=== PATIENT | female | born 1990 | race Caucasian/White ===

== ENCOUNTER 2016-11-03 11:40 | Emergency (ER) | payer MEDICAID ==
[~2016-11-03] VITALS: Wt 50.5 kg
[~2016-11-03 11:40] MED LIST: CALC-143 PO; FER325 PO; IBUP-1542 PO; PREN1TAB49 PO
[2016-11-03 12:13] LABS: URINE BLOOD (Dip) POC 1+ (NEGATIVE)
--- NOTE | 2016-11-03 12:28 | RADRPT ---
PROCEDURE: US Retroperitoneum. CLINICAL INDICATION: Hematuria. TECHNIQUE: Multiple sonographic images of the retroperitoneum were obtained. Evaluation of the ki dneys and bladder was performed as well as visualization of the aorta and other retroperitoneal stru ctures using a curved array transducer. The images were reviewed on a PACS workstation. COMPARISON: No prior studies are available for comparison. FINDINGS: The kidneys are well visualized. The right kidney measures 10.3 cm in length. The left kidney measu res 9.5 cm in length. There are no focal areas of abnormal echogenicity. There is no mass, calculus, or obstructive uropathy. No perinephric fluid collection is seen. The bladder is not well visual ized and may be decompressed. IMPRESSION: Unremarkable renal ultrasound. RPTAT: HH .Renato Ayala MD, Date Time Electronically viewed and signed by .Renato Ayala MD, MD on 11/03/2016 12:28 .A/
--- NOTE | 2016-11-03 12:29 | ERD ---
ER Documentation Chief Complaint Date/Time DATE: 11/03/16 TIME: 12:26 Chief Complaint LOWER BACK PAIN X1 WEEK, NO INJURY HPI This is a 25-year-old female presenting to the emergency department with bilateral lower back pain 2 weeks. No recent injury or trauma to area. Patient states she has a recent URI with cough and chest pain with coughing. Patient states she has had tactile fevers at home however has not checked her temperature. No nausea or vomiting. No diarrhea or constipation. Patient states today she developed dysuria with some vaginal spotting. Last menstrual period was 1 week ago. ROS All systems reviewed and are negative except as per history of present illness. Medications Home Meds Active Scripts Ibuprofen* (Motrin*) 400 Mg Tab, 400 MG PO Q6, #10 TAB Prov:ROB DÍAZ NP 11/03/16 Acetaminophen* (Tylenol*) 325 Mg Tablet, 1 TAB PO Q6 Y for PAIN AND OR ELEVATED TEMP, #20 TAB Prov:ROB DÍAZ NP 11/03/16 Azithromycin* (Zithromax*) 250 Mg Tablet, 250 MG PO .ZPACK DIRECTED, #6 TAB TAKE 500 MG (2 TABS) THE FIRST DAY THEN 250 MG (1 TAB) DAYS 2-5 Prov:ROB DÍAZ NP 11/03/16 Ibuprofen* (Ibuprofen*) 600 Mg Tab, 600 MG PO Q6, #20 0 Refills Prov:VALERI PARRA MD 01/12/15 Reported Medications Calcium Citrate/Vitamin D (Citracal-Vitamin D 200 MG-250) 1 Each Tablet, 1 EACH PO DAILY, TAB 12/26/14 Ferrous Sulfate* (Ferrous Sulfate*) 325 Mg Tabec, 325 MG PO DAILY, TAB 12/26/14 Vits W-Ca,Fe,Fa(<1MG) () 1 Tab Tablet, 1 TAB PO DAILY 12/29/10 Allergies Allergies: Coded Allergies: No Known Allergies (Verified Allergy, Unknown, 01/10/15) PMhx/Soc Medical and Surgical Hx: pt denies Medical Hx, pt denies Surgical Hx History of Surgery: No Anesthesia Reaction: No Hx Neurological Disorder: No Hx Respiratory Disorders: No Hx Cardiac Disorders: No Hx Psychiatric Problems: No Hx Miscellaneous Medical Probl: No Hx Alcohol Use: No Hx Substance Use: No Hx Tobacco Use: No Smoking Status: Never smoker Physical Exam Vitals Vital Signs Date Time Temp Pulse Resp B/P Pulse Ox O2 Delivery O2 Flow Rate FiO2 11/03/16 11:42 97.2 102 17 118/80 98 Physical Exam Const: No acute distress, alert Head: Atraumatic Eyes: Normal Conjunctiva ENT: Normal External Ears, Nose and Mouth. Neck: Full range of motion..~ No meningismus. Resp: Clear to auscultation bilaterally. No wheezing, rhonchi or crackles. Cardio: Regular rate and rhythm, no murmurs Abd: Soft, non tender, non distended. Normal bowel sounds Skin: No petechiae or rashes Back: No midline or flank tenderness. No CVA tenderness. Ext: No cyanosis, or edema Neur: Awake and alert Psych: Normal Mood and Affect Result Diagram: 11/03/16 1215 11/03/16 1215 Results 24 hrs Laboratory Tests Test 11/03/16 12:15 11/03/16 12:19 White Blood Count 6.910^3/ul Red Blood Count 4.7210^6/ul Hemoglobin 14.0g/dl Hematocrit 40.8% Mean Corpuscular Volume 86.4fl Mean Corpuscular Hemoglobin 29.7pg Mean Corpuscular Hemoglobin Concent 34.3g/dl Red Cell Distribution Width 11.9% Platelet Count 42763^3/UL Mean Platelet Volume 10.4fl Neutrophils % 65.6% Lymphocytes % 23.7% Monocytes % 7.8% Eosinophils % 2.2% Basophils % 0.4% Nucleated Red Blood Cells % 0.0/100WBC Neutrophils # 4.510^3/ul Lymphocytes # 1.610^3/ul Monocytes # 0.510^3/ul Eosinophils # 0.210^3/ul Basophils # 0.010^3/ul Nucleated Red Blood Cells # 0.010^3/ul Sodium Level 144mmol/L Potassium Level 4.7mmol/L Chloride Level 99mmol/L Carbon Dioxide Level 27mmol/L Anion Gap 23 Blood Urea Nitrogen 13mg/dl Creatinine 0.61mg/dl Glucose Level 93mg/dl Calcium Level 9.4mg/dl Total Bilirubin 0.4mg/dl Direct Bilirubin 0.00mg/dl Indirect Bilirubin 0.4mg/dl Aspartate Amino Transf (AST/SGOT) 24IU/L Alanine Aminotransferase (ALT/SGPT) 28IU/L Alkaline Phosphatase 79IU/L Total Protein 8.5g/dl Albumin 4.7g/dl Globulin 3.80g/dl Albumin/Globulin Ratio 1.23 Bedside Urine pH (LAB) 6.5 Bedside Urine Protein (LAB) 1+ Bedside Urine Glucose (UA) Negative Bedside Urine Ketones (LAB) Trace Bedside Urine Blood 1+ Bedside Urine Nitrite (LAB) Negative Bedside Urine Leukocyte Esterase (L Trace Current Medications Medications (Trade) Dose Ordered Sig/Adolph Route PRN Reason Start Time Stop Time Status Last Admin Dose Admin Ibuprofen (Motrin) 400 mg ONCE ONCE PO 11/03/16 12:30 11/03/16 12:31 DC 11/03/16 12:31 Procedures/MDM [place] [id number] Radiology Main Line: [phone] DIAGNOSTIC IMAGING REPORT Patient: BLACK CURTIS : 1990 Age: 25 Sex: F MR #: [id number] DOS: 11/03/16 1200 Ordering MD: ROB DÍAZ NP Location: [facility] Room/Bed: PROCEDURE: US Retroperitoneum. CLINICAL INDICATION: Hematuria. TECHNIQUE: Multiple sonographic images of the retroperitoneum were obtained. Evaluation of the kidneys and bladder was performed as well as visualization of the aorta and other retroperitoneal structures using a curved array transducer. The images were reviewed on a PACS workstation. COMPARISON: No prior studies are available for comparison. FINDINGS: The kidneys are well visualized. The right kidney measures 10.3 cm in length. The left kidney measures 9.5 cm in length. There are no focal areas of abnormal echogenicity. There is no mass, calculus, or obstructive uropathy. No perinephric fluid collection is seen. The bladder is not well visualized and may be decompressed. IMPRESSION: Unremarkable renal ultrasound. [place] [id number] Radiology Main Line: [phone] DIAGNOSTIC IMAGING REPORT Patient: BLACK CURTIS : 1990 Age: 25 Sex: F MR #: [id number] DOS: 11/03/16 1200 Ordering MD: ROB DÍAZ NP Location: [facility] Room/Bed: PROCEDURE: XR Chest. CLINICAL INDICATION: cough, chest pain, tactile fevers TECHNIQUE: Single frontal view of the chest was obtained COMPARISON: None FINDINGS: The heart and mediastinum are within normal limits. There is a patchy infiltrate in the lingula which obscures the left heart border. There is a 4 mm nodule in the mid left lung. Correlation with previous films would be useful. The lungs are otherwise clear. There is no pleural effusion or pneumothorax. The bones and soft tissue show no acute change. IMPRESSION: 1. There is an infiltrate present in the lingula which obscures the left heart border. 2. A 4 mm nodule is seen in the inferior aspect of the left upper lobe. Correlation with previous films would be useful. If no previous films are available for comparison, a low dose CT scan of the chest could be performed. EKG: As interpreted by myself and Dr. Patel Rate/Rhythm: Sinus tachycardia with heart rate [address] bpm. QRS, ST, T-waves: No changes consistent w/ acute ischemia Impression: No evidence of ischemia or arrhythmia MDM: This is a 25-year-old female presenting to emergency department with bilateral lower back pain 2 weeks. No recent injury or trauma to area. Patient has recent URI with cough and chest pain with coughing. Patient has dysuria and vaginal spotting starting today. Patient is afebrile upon arrival to ED. Vital signs are stable. No CVA tenderness. Physical exam is overall unremarkable. No abdominal pain to palpation. Renal ultrasound reviewed by radiologist is unremarkable. Urine dip shows trace leukocytosis, 1+ blood, trace ketones and 1+ protein. Urine is negative. EKG shows sinus tachycardia with heart rate 103 bpm. Chest x-ray reviewed by radiologist as infiltrate present in the lingula which obscures the left heart border. A 4 mm nodule is seen in the inferior aspect of the left upper lobe. Patient is afebrile and vital signs remained stable. Diagnosis is pneumonia. Low suspicion for pleural effusion, acute [place], pneumothorax or other emergent etiology. Patient is appropriate for outpatient management will be given prescription for azithromycin, Tylenol and ibuprofen. Instructed patient to follow-up with primary care provider in the next 2-3 days for reassessment and additional management. Return to ED for any high fever, chest pain, difficulty breathing, shortness breath, wheezing, vomiting, diarrhea, abdominal pain or any new or worsening symptoms. Patient verbalizes understanding. All questions answered at discharge. Departure Diagnosis: Primary Impression: Pneumonia Pneumonia type: due to unspecified organism Laterality: left Lung location : lower lobe of lung Qualified Code: J18.1 - Pneumonia of left lower lobe due to infectious organism Condition: Stable ROB DÍAZ NP Nov 03, 2016 12:29
[2016-11-03] MEDS ORDERED: IBUPROFEN 200 MG TAB PO ONE (12:30)
[2016-11-03 12:35] LABS: BASOPHILS % 0.4 % (0.0-2.0); EOSINOPHILS # 0.2 10^3/ul (0.0-0.5); EOSINOPHILS % 2.2 % (0.0-7.0); HEMATOCRIT 40.8 % (37.0-47.0); LYMPHOCYTES # 1.6 10^3/ul (0.8-2.9); LYMPHOCYTES % 23.7 % (15.0-51.0); MEAN CORPUSCULAR HEMOGLOBIN 29.7 pg (29.0-33.0); MEAN CORPUSCULAR HGB CONC 34.3 g/dl (32.0-37.0); MEAN CORPUSCULAR VOLUME 86.4 fl (82.0-101.0); MEAN PLATELET VOLUME 10.4 fl (7.4-10.4); MONOCYTE # 0.5 10^3/ul (0.3-0.9); MONOCYTES % 7.8 % (0.0-11.0); NEUTROPHIL # 4.5 10^3/ul (1.6-7.5); NEUTROPHILS % 65.6 % (39.0-77.0); PLATELET COUNT 279 10^3/UL (140-415); RED BLOOD COUNT 4.72 10^6/ul (4.20-5.40); RED CELL DISTRIBUTION WIDTH 11.9 % (11.5-14.5); WHITE BLOOD COUNT 6.9 10^3/ul (4.8-10.8)
--- NOTE | 2016-11-03 12:58 | RADRPT ---
PROCEDURE: XR Chest. CLINICAL INDICATION: cough, chest pain, tactile fevers TECHNIQUE: Single frontal view of the chest was obtained COMPARISON: None FINDINGS: The heart and mediastinum are within normal limits. There is a patchy infiltrate in the lingula which obscures the left heart border. There is a 4 mm nodule in the mid left lung. Correlation with previous films would be useful. The lungs are otherwise clear. There is no pleural effusion or pneumothorax. The bones and soft tissue show no acute change. IMPRESSION: 1. There is an infiltrate present in the lingula which obscures the left heart border. 2. A 4 mm nodule is seen in the inferior aspect of the left upper lobe. Correlation with previous films would be useful. If no previous films are available for comparison, a low dose CT scan of the chest could be performed. RPTAT:AAJJ Physician Georgette Date Time Electronically viewed and signed by Physician Georgette on 11/03/2016 12:58 /
[2016-11-03 12:59] LABS: ALBUMIN 4.7 g/dl (3.3-4.9); ALBUMIN/GLOBULIN RATIO 1.23; BILIRUBIN,INDIRECT 0.4 mg/dl (0-1.1); BILIRUBIN,TOTAL 0.4 mg/dl (0.2-1.3); CALCIUM 9.4 mg/dl (8.4-10.2); CREATININE 0.61 mg/dl (0.44-1.00); POTASSIUM 4.7 mmol/L (3.5-5.1); TOTAL PROTEIN 8.5 g/dl (6.1-8.1)
[2016-11-03] MEDS ORDERED: IBUP400T22 PO (13:28)
[2016-11-03] MEDS ORDERED: AZIT250T94 PO (13:28)
[2016-11-03] MEDS ORDERED: ACET325T33 PO (13:28)
== END 2016-11-03 13:56 | disposition home or self-care (01) ==
LOC: FTE 11:40
DX: J18.1 Lobar pneumonia, unspecified organism (principal); R07.9 Chest pain, unspecified
CPT/HCPCS: 71010; 76775; 80053; 81003; 85025; 93005; Z7610